=== PATIENT | male | born 2000 | race Caucasian/White ===

== ENCOUNTER 2021-07-10 18:46 | Emergency (ER) | payer OTHER ==
[2021-07-10 18:52] VITALS: BP 128/69; PULSE 83; TEMP 98.2; BMI 24.4
== END 2021-07-10 19:07 | disposition home or self-care (01) ==
LOC: FER 18:46
DX: S16.1XXA Strain of muscle, fascia and tendon at neck level, initial encounter (principal); X50.9XXA Other and unspecified overexertion or strenuous movements or postures, initial encounter; W50.0XXA Accidental hit or strike by another person, initial encounter; Y93.64 Activity, baseball
CPT/HCPCS: 99281-25

== ENCOUNTER 2021-10-19 23:53 | Emergency (ER) | payer OTHER ==
[2021-10-19 23:59] VITALS: BP 136/84; PULSE 78; TEMP 98.4; BMI 26.4
== END 2021-10-20 00:22 | disposition home or self-care (01) ==
LOC: FER 23:53
DX: S46.912A Strain of unspecified muscle, fascia and tendon at shoulder and upper arm level, left arm, initial encounter (principal); X50.0XXA Overexertion from strenuous movement or load, initial encounter; Y93.64 Activity, baseball
CPT/HCPCS: 99281-25

== ENCOUNTER → 2022-11-17 | Day surgery (SDC) | payer OTHER | END | disposition home or self-care (01) | LOC: JRADIR 09:27 | PROVIDERS: ATTEND Orthopaedic Surgery | PROC: BP39YZZ Magnetic Resonance Imaging (MRI) of Left Shoulder using Other Contrast (ICD-10-PCS; principal; 2022-11-17) | DX: S43.432A Superior glenoid labrum lesion of left shoulder, initial encounter (principal); X58.XXXA Exposure to other specified factors, initial encounter; Y93.9 Activity, unspecified; Y92.9 Unspecified place or not applicable; Y99.9 Unspecified external cause status | CPT/HCPCS: 23350; 73040-TC-FY; 73222-TC ==